=== PATIENT | male | born 1975 | race Hispanic/Latino ===

== ENCOUNTER 2018-03-09 06:47 | Emergency (ER) | payer BC ==
[~2018-03-09] VITALS: Ht 172.7 cm; Wt 81.7 kg
[2018-03-09] MEDS ORDERED: PROTONIX40 MG PO (08:04)
--- NOTE | 2018-03-16 13:30 | EKG ---
[facility] [address] [facility] [place], [place] [address] Signed Normal sinus rhythm Left axis deviation Abnormal ECG No previous ECGs available Confirmed by LEO ZIEGLER DO ([id number]) on 03/16/2018 1:30:28 PM Electronically Signed By: LEO ZIEGLER DO 03/16/18 1330 PATIENT NAME: DAQUAN BURAK HALEY Electrocardiogram DATE OF : 79 PHYSICIAN: LEO ZIEGLER DO REPORT #: [id number] REPORT IS CONFIDENTIAL AND NOT TO BE RELEASED WITHOUT AUTHORIZATION
== END 2018-03-09 08:15 | disposition home or self-care (01) ==
LOC: ED 06:47
DX: R07.89 Other chest pain (principal)
CPT/HCPCS: 71045; 80053; 82150; 83690; 84484; 85025; 93005; 93010; 99285-25